=== PATIENT | female | born 1985 | race Caucasian/White ===

== ENCOUNTER 2018-03-08 14:41 | Emergency (ER) | payer OTHER ==
[~2018-03-08] VITALS: Ht 177.8 cm; Wt 93.9 kg
== END 2018-03-08 17:35 | disposition home or self-care (01) ==
LOC: ER 14:41
DX: O23.592 Infection of other part of genital tract in pregnancy, second trimester (principal); N76.4 Abscess of vulva; Z34.82 Encounter for supervision of other normal pregnancy, second trimester

== ENCOUNTER 2018-06-16 14:54 | Outpatient (CLI) | payer OTHER ==
[2018-06-16] MEDS ORDERED: OBSTETRIX EC C1 EACH PO (17:22)
== END 2018-06-16 20:00 | disposition home or self-care (01) ==
LOC: OBS/DEL 14:54 → LDR 14:58 → OBS/DEL 15:06 → LDR 06-17 17:43 → OBS/DEL 06-17 17:43
DX: O76 Abnormality in fetal heart rate and rhythm complicating labor and delivery (principal); Z34.83 Encounter for supervision of other normal pregnancy, third trimester

== ENCOUNTER 2018-06-17 18:09 | Inpatient (IN) | payer OTHER ==
[~2018-06-17] VITALS: Ht 177.8 cm; Wt 113.4 kg
[~2018-06-17 18:09] MED LIST: OBSTETRIX EC C1 EACH PO
== END 2018-06-20 16:15 | DRG 807 ==
LOC: OB/GYN 18:09 → LDR 18:09 → OB/GYN 06-18 14:43
PROVIDERS: ADMIT Obstetrics & Gynecology
PROC: 10E0XZZ Delivery of Products of Conception, External Approach (ICD-10-PCS; principal; 2018-06-18)
PROC: 0W8NXZZ Division of Female Perineum, External Approach (ICD-10-PCS; 2018-06-18)
PROC: 3E0P7VZ Introduction of Hormone into Female Reproductive, Via Natural or Artificial Opening (ICD-10-PCS; 2018-06-18)
PROC: 4A1HXCZ Monitoring of Products of Conception, Cardiac Rate, External Approach (ICD-10-PCS; 2018-06-18)
DX: O80 Encounter for full-term uncomplicated delivery (principal); Z37.0 Single live birth; Z3A.39 39 weeks gestation of pregnancy